=== PATIENT | male | born 1970 | race African-American/Black ===

== ENCOUNTER → 2025-05-20 | Outpatient (CLI) | payer BC ==
[2025-05-20 10:58] LABS: BASOPHILS % 1.7 % (0.0-2.0); EOSINOPHILS % 2.5 % (0.0-5.0); HEMATOCRIT. 49.0 % (42.0-52.0); HEMOGLOBIN. 16.0 g/dL (14.0-18.0); LYMPHOCYTES % 15.2 % (20.0-50.0); MEAN PLATELET VOLUME 8.5 fl (7.4-10.4); MONOCYTES % 6.6 % (2.0-8.0); NEUTROPHILS % 74.0 % (40.0-76.0); PLATELET 351 x1000/uL (130-400); RED BLOOD CELL COUNT 6.22 mill/uL (4.7-6.1); RED CELL DISTRIBUTION WIDTH 19.4 % (11.6-14.6)
[2025-05-20 11:09] LABS: CLARITY URINE CLEAR (CLEAR); COLOR URINE YELLOW (YELLOW); GLUCOSE URINE NEGATIVE (NEGATIVE); KETONES URINE NEGATIVE (NEGATIVE); LEUKOCYTE ESTERASE URINE NEGATIVE (NEGATIVE); NITRITE URINE NEGATIVE (NEGATIVE); OCCULT BLOOD URINE NEGATIVE (NEGATIVE); PH URINE 5.5 (4.5-8.0); PROTEIN URINE NEGATIVE (NEGATIVE); SPECIFIC GRAVITY URINE 1.022 (1.005-1.030); UROBILINOGEN URINE 0.2 E.U./dL (0.2-1.0)
[2025-05-20 11:13] LABS: CREATININE 1.3 mg/dL (0.6-1.3)
[2025-05-20 11:14] LABS: LDL CHOLESTEROL 136 mg/dL (5-100); PROTEIN TOTAL 8.2 g/dL (6.0-8.3); TRIGLYCERIDE 123 mg/dL (0-150); UREA NITROGEN BLOOD 14 mg/dL (9-23)
[2025-05-20 11:15] LABS: ASPARTATE AMINOTRANSFERASE 33 IU/L (<34)
[2025-05-20 11:16] LABS: BILIRUBIN TOTAL 0.4 mg/dL (0.1-1.0)
[2025-05-20 11:33] LABS: FOLIC ACID (FOLATE) SERUM > 20.00 ng/mL (>5.38)
[2025-05-20 11:34] LABS: VITAMIN B12 SERUM 719 pg/mL (211-911)
[2025-05-20 12:06] LABS: HEPATITIS A AB IGM NEGATIVE (Negative)
[2025-05-20 12:07] LABS: HEPATITIS B CORE AB IGM NEGATIVE (Negative)
[2025-05-20 12:22] LABS: HEPATITIS C AB REACTIVE (Pos) (Negative)
[2025-05-22 09:07] LABS: VITAMIN D 25-OH 32.0 ng/mL (30.0-100.0)
[2025-05-22 10:10] LABS: PROSTATE SPECIFIC AG TOTAL 4.0 ng/mL (0.0-4.0)
[2025-05-23 13:11] LABS: CHLAMYDIA TRACHOMATIS NAA Negative (Negative); NEISSERIA GONORRHOEAE NAA Negative (Negative)
== END | disposition home or self-care (01) ==
LOC: LAB 10:21
PROVIDERS: ATTEND Internal Medicine Geriatric Medicine
DX: Z00.01 Encounter for general adult medical examination with abnormal findings (principal)
CPT/HCPCS: 36415; 80053; 80061; 80074; 81003; 82306; 82607; 82728; 82746; 83036; 84153; 84443; 84550; 85025; 86592; 86705; 86709; 87340; 87491; 87591